=== PATIENT | female | born 1935 | race Caucasian/White ===

== ENCOUNTER 2021-04-08 11:41 | Observation (INO) | payer OTHER ==
[~2021-04-08] VITALS: Ht 144.8 cm; Wt 47.2 kg
[2021-04-08 13:10] LABS: HEMOGLOBIN 13.6 gm/dl (12.3-15.3); RED BLOOD COUNT 4.42 M/UL (4.00-5.10)
[2021-04-08 13:53] LABS: BUN/CREATININE RATIO 35 (0-10)
[2021-04-08] MEDS ORDERED: RANEXA500 MG PO (15:02)
[2021-04-08] MEDS ORDERED: SOTALOL80 MG PO (15:02)
[2021-04-08] MEDS ORDERED: NITROSTAT 0.40.4 MG SL (15:02)
[2021-04-08] MEDS ORDERED: OMEPRAZOLE20 MG PO (15:03)
[2021-04-08] MEDS ORDERED: NORVASC5 MG PO (15:03)
[2021-04-08] MEDS ORDERED: NEURONTIN 100100 MG PO (15:03)
[2021-04-08] MEDS ORDERED: ZETIA10 MG PO (15:28)
[2021-04-08] MEDS ORDERED: LASIX20 MG PO (15:28)
[2021-04-08] MEDS ORDERED: BENTYL 10MG CAP10 MG PO (15:28)
[2021-04-08] MEDS ORDERED: DAILY VITAMIN1 EAC2 PO (15:29)
[2021-04-08] MEDS ORDERED: BYSTOLIC5 MG PO (15:29)
[2021-04-08] MEDS ORDERED: ADULT LOW DOSE81 MG PO (15:29)
[2021-04-08] MEDS ORDERED: ADVIL200 MG PO (15:29)
[2021-04-09 02:56] LABS: HEMOGLOBIN 12.7 gm/dl (12.3-15.3); RED BLOOD COUNT 4.32 M/UL (4.00-5.10); WHITE BLOOD COUNT 12.1 K/UL (4.5-11.0)
[2021-04-09 03:35] LABS: BUN/CREATININE RATIO 22 (0-10)
== END 2021-04-09 17:05 | disposition home or self-care (01) ==
LOC: ER1 11:41 → CDU 14:56 → M/S 21:08
PROVIDERS: Student in an Organized Health Care Education/Training Program; ADMIT Internal Medicine
DX: R07.89 Other chest pain (principal); I10 Essential (primary) hypertension; I48.0 Paroxysmal atrial fibrillation; K21.9 Gastro-esophageal reflux disease without esophagitis; Z20.822 Contact with and (suspected) exposure to COVID-19; Z95.0 Presence of cardiac pacemaker; Z88.2 Allergy status to sulfonamides; Z88.7 Allergy status to serum and vaccine; Z79.82 Long term (current) use of aspirin; Z79.899 Other long term (current) drug therapy
CPT/HCPCS: 36415; 71045; 78452; 80048; 80053; 82550; 82553; 82962; 83735; 83874; 84484; 85025; 93005; 93017; 99285; A9502; G0378; J2785; U0002